=== PATIENT | female | born 1960 | race Two or more races ===

== ENCOUNTER 2017-10-26 11:40 | Emergency (ER) | payer OTHER ==
[~2017-10-26] VITALS: Ht 160 cm; Wt 53.6 kg
[2017-10-26 12:12] LABS: HEMATOCRIT 40.4 % (36.0-46.0); HEMOGLOBIN 13.6 G/DL (11.9-15.5); MCH 31.3 PG (29.0-34.0); MCHC 33.7 G/DL (30.0-36.0); MCV 92.9 FL (83-99); PLATELET COUNT 231 K/uL (156-360); RBC DIS.WIDTH-CV 11.9 % (11.8-14.6); RBC DIS.WIDTH-SD 40.7 % (39-53); RED BLOOD COUNT 4.35 M/uL (3.80-5.20); WHITE BLOOD COUNT 7.1 K/uL (4.1-10.2)
[2017-10-26 12:32] LABS: ALBUMIN 4.4 g/dL (3.2-4.8)
[2017-10-26 12:33] LABS: CHLORIDE 105 mEq/L (99-109); POTASSIUM 4.5 mEq/L (3.7-5.4); SODIUM 140 mEq/L (136-147)
[2017-10-26 12:35] LABS: GLUCOSE 100 mg/dL (70-99); TOTAL PROTEIN 7.2 g/dL (6.4-8.3)
[2017-10-26 12:37] LABS: TOTAL BILIRUBIN 0.7 mg/dL (0.0-1.0)
[2017-10-26 12:38] LABS: ALKALINE PHOSPHATASE 82 IU/L (3-129)
[2017-10-26 12:39] LABS: CREATININE 0.8 mg/dL (0.6-1.3); GFR ESTIMATE (CALCULATED) > 59 mL/min/
[2017-10-26 12:40] LABS: AST (GOT) 23 IU/L (2-34); UREA NITROGEN (BUN) 13 mg/dL (9-23)
[2017-10-26 12:41] LABS: ALT (GPT) 18 IU/L (3-49)
[2017-10-26 13:15] LABS: APPEARANCE CLEAR ((CLEAR)); BILIRUBIN NEGATIVE; BLOOD NEGATIVE; COLOR STRAW ((YELLOW)); GLUCOSE (STRIP) NEGATIVE; KETONES NEGATIVE; LEUKOCYTES NEGATIVE; NITRITE NEGATIVE; PROTEIN (STRIP) NEGATIVE; SPECIFIC GRAVITY 1.008 (1.000-1.030); UCUL ADDED? NO; UROBILINOGEN 0.2 MG/DL (0.2-1.0)
[2017-10-26 13:56] LABS: LIPASE 27 U/L (1.0-51.0)
[2017-10-26] MEDS ORDERED: FLAGYL500 MG PO (15:15)
[2017-10-26] MEDS ORDERED: CIPRO500 MG PO (15:15)
[2017-10-26] MEDS ORDERED: DIFLUCAN150 MG PO (15:38)
[2017-10-26 15:48] VITALS: BP 120/68
== END 2017-10-26 15:49 | disposition home or self-care (01) ==
LOC: EME 11:40
DX: K57.32 Diverticulitis of large intestine without perforation or abscess without bleeding (principal); Z85.828 Personal history of other malignant neoplasm of skin
CPT/HCPCS: 74177; 80053; 81003; 83690; 85027; 99281; 99284; J7120